=== PATIENT | male | born 1995 | race Caucasian/White ===

== ENCOUNTER 2023-01-26 10:30 | Emergency (ER) | payer BC ==
[2023-01-26] MEDS ORDERED: Lidocaine 1% 5 ML VIAL INJECT ONE (11:16)
[2023-01-26] MEDS ORDERED: Bacitracin Oint 1 GM U/D Packet TOP ONE (11:16)
== END 2023-01-26 11:45 | disposition home or self-care (01) ==
LOC: JP.ED 10:30
DX: S60.450A Superficial foreign body of right index finger, initial encounter (principal); Z86.16 Personal history of COVID-19; W45.8XXA Other foreign body or object entering through skin, initial encounter
CPT/HCPCS: 99283